=== PATIENT | female | born 1985 | race Two or more races ===

== ENCOUNTER 2022-01-13 18:49 | Emergency (ER) | payer SELFPAY ==
[~2022-01-13] VITALS: Ht 152.4 cm; Wt 51.3 kg
[2022-01-13 19:55] VITALS: BP 129/72
[2022-01-13] MEDS ORDERED: IBUPROFEN 600 MG TABLET ONE (20:20)
[2022-01-13] MEDS ORDERED: IBUPROFEN 600 MG TABLET PO ONE (20:30)
--- NOTE | 2022-01-13 20:33 | NUR ---
Patient discharged to home in stable condition. Written and verbal after care instructions given. Patient verbalizes understanding of instruction. Pt ambulatory with a steady gait
== END 2022-01-13 20:46 | disposition home or self-care (01) ==
LOC: ER 18:51
DX: S16.1XXA Strain of muscle, fascia and tendon at neck level, initial encounter (principal); Z88.0 Allergy status to penicillin; V49.49XA Driver injured in collision with other motor vehicles in traffic accident, initial encounter; Y93.89 Activity, other specified; Y92.413 State road as the place of occurrence of the external cause; Y99.8 Other external cause status